=== PATIENT | female | born 1985 | race Caucasian/White ===

== ENCOUNTER 2016-08-06 10:28 | Emergency (ER) | payer BC, OTHER ==
[~2016-08-06] VITALS: Ht 154.9 cm; Wt 69.3 kg
[~2016-08-06 10:28] MED LIST: ALBU8I INH; DOCO200C PO
[2016-08-06 10:32] VITALS: BP 118/77; PULSE 88; RESP 20; TEMP 98; O2SAT 100
[2016-08-06] MEDS ORDERED: ONDANSETRON HCL 4 MG/2 ML VIAL IVP ONE (11:00)
[2016-08-06] MEDS ORDERED: PANTOPRAZOLE SODIUM 40 MG VIAL IVP ONE (11:00)
--- NOTE | 2016-08-06 11:00 | PD ---
HPI Chief Complaint: Abdominal Pain Time Seen by Provider: 10:45 Travel History International Travel<30 days: No Contact w/Intl Traveler<30days: No Traveled to known affect area: No History of Present Illness HPI 30yo F with no significant PMH presents to the ED with c/o epigastric abdominal pain that has been intermittent since 07/12/16. States it is sharp and sometimes radiates to left upper abdomen and left lower back. States it was constant since last night. Pain is worst after eating. +Nausea. Denies any fever, chest pain, sob, vomiting, dysuria, hematuria, vaginal bleeding or discharge, focal weakness or numbness, alcohol use, or trauma. Only PSH is . Never had endoscopy. PFSH Past Medical History Diabetes: Yes (GESTATIONAL) Patient Takes Glucophage: No Diminished Hearing: No Headaches: Yes Tetanus Vaccination: < 5 Years Influenza Vaccination: No ?: Unknown LMP: 07/16/16 : 1 Past Surgical History Section: Yes Oral Surgery: Yes (WISDOM TEETH) Social History Alcohol Use: No Tobacco Use: No Substance Use: No Allergies-Medications (Allergen,Severity, Reaction): Coded Allergies: No Known Allergies (Verified , 08/06/16) Reported Meds & Prescriptions Reported Meds & Active Scripts Active No Active Prescriptions or Reported Medications Review of Systems Except as stated in HPI: all other systems reviewed are Neg Physical Exam Narrative GENERAL: 30yo F not in distress. SKIN: Focused skin assessment warm/dry. HEAD: Atraumatic. Normocephalic. CARDIOVASCULAR: Regular rate and rhythm. No murmur appreciated. RESPIRATORY: No accessory muscle use. Clear to auscultation. Breath sounds equal bilaterally. GASTROINTESTINAL: Abdomen soft, +TTP epigastric region. +LUQ ttp. No RLQ ttp. No rebound tenderness or guarding. BACK: No CVA tenderness bilaterally. No midline thoracic or lumbar spine ttp. +TTP left paraspinal lumbar region. Negative straight leg test. MUSCULOSKELETAL: No obvious deformities. No clubbing. No cyanosis. No edema. NEUROLOGICAL: Awake and alert. No obvious cranial nerve deficits. Motor grossly within normal limits. Sensation equal bilaterally. Normal speech. PSYCHIATRIC: Appropriate mood and affect; insight and judgment normal. Data Data Last Documented VS Vital Signs Date Time Temp Pulse Resp B/P Pulse Ox O2 Delivery O2 Flow Rate FiO2 08/06/16 10:32 98.0 88 20 118/77 100 Orders Ed Urine Pregnancytest Poc (08/06/16 10:50) Complete Blood Count With Diff (08/06/16 10:55) Comprehensive Metabolic Panel (08/06/16 10:55) Lipase (08/06/16 10:55) Urinalysis - C+S If Indicated (08/06/16 10:55) Ondansetron Inj (Zofran Inj) (08/06/16 11:00) Pantoprazole Inj (Protonix Inj) (08/06/16 11:00) Morphine Inj (Morphine Inj) (08/06/16 11:45) Ct Abd/Pel W Iv Contrast(Rout) (08/06/16 ) Potassium Chloride (Kcl) (08/06/16 11:45) Urine Culture (08/06/16 11:00) Iohexol 350 Inj (Omnipaque 350 Inj) (08/06/16 11:51) Sulfamet-Trimeth Ds 800-160 Mg (Bactrim (08/06/16 12:30) Labs Laboratory Tests Test 08/06/16 11:00 White Blood Count 2.8 TH/MM3 Red Blood Count 4.47 MIL/MM3 Hemoglobin 12.4 GM/DL Hematocrit 37.8 % Mean Corpuscular Volume 84.7 FL Mean Corpuscular Hemoglobin 27.9 PG Mean Corpuscular Hemoglobin 32.9 % Concent Red Cell Distribution Width 12.2 % Platelet Count 180 TH/MM3 Mean Platelet Volume 8.6 FL Neutrophils (%) (Auto) 46.2 % Lymphocytes (%) (Auto) 36.2 % Monocytes (%) (Auto) 13.3 % Eosinophils (%) (Auto) 3.9 % Basophils (%) (Auto) 0.4 % Neutrophils # (Auto) 1.3 TH/MM3 Lymphocytes # (Auto) 1.0 TH/MM3 Monocytes # (Auto) 0.4 TH/MM3 Eosinophils # (Auto) 0.1 TH/MM3 Basophils # (Auto) 0.0 TH/MM3 CBC Comment DIFF FINAL Differential Comment Urine Collection Type CLEAN CATCH Urine Color YELLOW Urine Turbidity SLIGHT Urine pH 6.0 Urine Specific Moro 1.014 Urine Protein NEG mg/dL Urine Glucose (UA) NEG mg/dL Urine Ketones NEG mg/dL Urine Occult Blood NEG Urine Nitrite NEG Urine Bilirubin NEG Urine Leukocyte Esterase TRACE Urine WBC 9-14 /hpf Urine Squamous Epithelial 0-5 /hpf Cells Urine Transitional Epithelial 0-5 /hpf Cells Urine Amorphous Sediment FEW Urine Bacteria FEW /hpf Microscopic Urinalysis Comment CULTURE INDICATED Urine Collection Time 1100 Sodium Level 142 MEQ/L Potassium Level 3.3 MEQ/L Chloride Level 107 MEQ/L Carbon Dioxide Level 26.6 MEQ/L Anion Gap 8 MEQ/L Blood Urea Nitrogen 7 MG/DL Creatinine 0.74 MG/DL Estimat Glomerular Filtration 93 ML/MIN Rate Random Glucose 82 MG/DL Calcium Level 7.7 MG/DL Total Bilirubin 0.4 MG/DL Aspartate Amino Transf 12 U/L (AST/SGOT) Alanine Aminotransferase 16 U/L (ALT/SGPT) Alkaline Phosphatase 55 U/L Total Protein 7.0 GM/DL Albumin 3.2 GM/DL Lipase 73 U/L [facility] Medical Decision Making Medical Screen Exam Complete: Yes Emergency Medical Condition: Yes Interpretation(s) Laboratory Tests Test 08/06/16 11:00 White Blood Count 2.8 TH/MM3 (4.0-11.0) Red Blood Count 4.47 MIL/MM3 (4.00-5.30) Hemoglobin 12.4 GM/DL (11.6-15.3) Hematocrit 37.8 % (35.0-46.0) Mean Corpuscular Volume 84.7 FL (80.0-100.0) Mean Corpuscular Hemoglobin 27.9 PG (27.0-34.0) Mean Corpuscular Hemoglobin 32.9 % Concent (32.0-36.0) Red Cell Distribution Width 12.2 % (11.6-17.2) Platelet Count 180 TH/MM3 (150-450) Mean Platelet Volume 8.6 FL (7.0-11.0) Neutrophils (%) (Auto) 46.2 % (16.0-70.0) Lymphocytes (%) (Auto) 36.2 % (9.0-44.0) Monocytes (%) (Auto) 13.3 % (0.0-8.0) Eosinophils (%) (Auto) 3.9 % (0.0-4.0) Basophils (%) (Auto) 0.4 % (0.0-2.0) Neutrophils # (Auto) 1.3 TH/MM3 (1.8-7.7) Lymphocytes # (Auto) 1.0 TH/MM3 (1.0-4.8) Monocytes # (Auto) 0.4 TH/MM3 (0-0.9) Eosinophils # (Auto) 0.1 TH/MM3 (0-0.4) Basophils # (Auto) 0.0 TH/MM3 (0-0.2) CBC Comment DIFF FINAL Differential Comment Urine Collection Type CLEAN CATCH Urine Color YELLOW (YELLW/STRAW) Urine Turbidity SLIGHT (CLEAR) Urine pH 6.0 (5.0-8.5) Urine Specific Moro 1.014 (1.002-1.035) Urine Protein NEG mg/dL (NEG-TRACE) Urine Glucose (UA) NEG mg/dL (NEG) Urine Ketones NEG mg/dL (NEG) Urine Occult Blood NEG (NEG) Urine Nitrite NEG (NEG) Urine Bilirubin NEG (NEG) Urine Leukocyte Esterase TRACE (NEG) Urine WBC 9-14 /hpf (0-5) Urine Squamous Epithelial 0-5 /hpf (0-5) Cells Urine Transitional Epithelial 0-5 /hpf (NONE) Cells Urine Amorphous Sediment FEW Urine Bacteria FEW /hpf (NONE) Microscopic Urinalysis Comment CULTURE INDICATED Urine Collection Time 1100 Sodium Level 142 MEQ/L (136-145) Potassium Level 3.3 MEQ/L (3.5-5.1) Chloride Level 107 MEQ/L (98-107) Carbon Dioxide Level 26.6 MEQ/L (21.0-32.0) Anion Gap 8 MEQ/L (5-15) Blood Urea Nitrogen 7 MG/DL (7-18) Creatinine 0.74 MG/DL (0.50-1.00) Estimat Glomerular Filtration 93 ML/MIN (>89) Rate Random Glucose 82 MG/DL (74-106) Calcium Level 7.7 MG/DL (8.5-10.1) Total Bilirubin 0.4 MG/DL (0.2-1.0) Aspartate Amino Transf 12 U/L (15-37) (AST/SGOT) Alanine Aminotransferase 16 U/L (10-53) (ALT/SGPT) Alkaline Phosphatase 55 U/L (45-117) Total Protein 7.0 GM/DL (6.4-8.2) Albumin 3.2 GM/DL (3.4-5.0) Lipase 73 U/L (73-393) Last Impressions Abdomen/Pelvis CT 08/06/16 0000 Signed Impressions: Service Date/Time: Saturday, August 06, 2016 11:36 - CONCLUSION: 1. No acute inflammatory process. 2. Punctate 2 mm nonobstructing right renal calculus. 3. Hepatic and renal subcentimeter low densities likely benign. Nilton Madrigal MD Differential Diagnosis Peptic ulcer disease vs. pancreatitis vs. gastritis vs. pyelonephritis vs. nephrolithiasis vs. musculoskeletal pain Narrative Course 30yo F with epigastric and LUQ pain. Pt given pantoprazole and zofran and reevaluated at bedside. States pain has not improved. Labs reviewed, leukopenia which is new. K: 3.3, replaced orally. Lipase normal. Urine negative. Since pt still with pain, will give morphine 6mg IV and do CTa/p. CTa/p showed no acute inflammatory process. Punctate 2mm nonobstructing right renal calculus. UA showed trace leukocyte. WBC 9-14. Pt did have left sided back pain so will treat as pyelonephritis. Pt given bactrim PO and able to tolerate. Pt reevaluated after morphine and pain has improved. Pt is to follow up with GI for further evaluation of epigastric pain which I feel may be gastritis or peptic ulcer disease. Return precautions given. Diagnosis Primary Impression: Abdominal pain Qualified Code: R10.13 - Epigastric pain Referrals: Lona Yancey MD as needed Epigastric abdominal pain concerning for PUD Patient Instructions: General Instructions Departure Forms: Tests/Procedures Additional Instructions: Please follow up with your PMD in 3-7 days. Please follow up with music artist if epigastric pain persists. Return to the ED if symptoms worsen. Med/Other Pt SpecificInfo: Prescription(s) given Scripts Ondansetron Odt (Zofran Odt)4 Mg Tab4 Mg SL Q12HR PRN (Nausea/Vomiting) #6 TAB Ref 0 Prov:Rose Marie Nguyen DO 08/06/16 Sulfamethoxazole-Trimethoprim (Bactrim DS)800-160 Mg Tab1 Tab PO BID #6 TAB Ref 0 Prov:Rose Marie Nguyen DO 08/06/16 Omeprazole 40 Mg Cap40 Mg PO DAILY #7 CAP Ref 0 Prov:Rose Marie Nguyen DO 08/06/16 Disposition: 01 DISCHARGE HOME Condition: Stable Rose Marie Nguyen DO August 06, 2016 11:00
[2016-08-06 11:09] LABS: AUTOMATED NEUTROPHIL # 1.3 TH/MM3 (1.8-7.7); BASOPHIL % 0.4 % (0.0-2.0); EOSINOPHIL # 0.1 TH/MM3 (0-0.4); EOSINOPHIL % 3.9 % (0.0-4.0); HEMATOCRIT 37.8 % (35.0-46.0); HEMO FLAGS DIFF FINAL; LYMPH % 36.2 % (9.0-44.0); MEAN CELL VOLUME 84.7 FL (80.0-100.0); MEAN CORPUSCULAR HEMOGLOBIN 27.9 PG (27.0-34.0); MEAN CORPUSCULAR HGB CONC 32.9 % (32.0-36.0); MONO % 13.3 % (0.0-8.0); NEUT % 46.2 % (16.0-70.0); PLATELET COUNT 180 TH/MM3 (150-450); RED BLOOD COUNT 4.47 MIL/MM3 (4.00-5.30); RED CELL DISTRIBUTION WIDTH 12.2 % (11.6-17.2); WHITE BLOOD COUNT 2.8 TH/MM3 (4.0-11.0)
[2016-08-06 11:17] LABS: CHLORIDE 107 MEQ/L (98-107); POTASSIUM 3.3 MEQ/L (3.5-5.1); SODIUM (NA) 142 MEQ/L (136-145)
[2016-08-06 11:21] LABS: ANION GAP 8 MEQ/L (5-15); BICARBONATE 26.6 MEQ/L (21.0-32.0); BLOOD UREA NITROGEN 7 MG/DL (7-18)
[2016-08-06 11:24] LABS: ALT (GPT) 16 U/L (10-53); AST (GOT) 12 U/L (15-37); GLOMERULAR FILTRATION RATE 93 ML/MIN (>89)
[2016-08-06 11:26] LABS: TOTAL BILIRUBIN ADULT 0.4 MG/DL (0.2-1.0)
[2016-08-06 11:27] LABS: ALKALINE PHOSPHATASE 55 U/L (45-117)
[2016-08-06 11:29] LABS: BLOOD, URINE NEG (NEG); GLUCOSE,URINE NEG (NEG); KETONE, URINE NEG (NEG); NITRITE,URINE NEG (NEG)
[2016-08-06 11:34] LABS: METHOD OF COLLECTION CLEAN CATCH; URINE COLOR YELLOW (YELLW/STRAW)
[2016-08-06 11:36] LABS: BACTERIA, URINE FEW /hpf; COMMENT (UR) CULTURE INDICATED; COMMENT2 (UR) MUCOUS PRESENT; CULTURE IF INDICATED CULTURE INDICATED; SQUAMOUS EPITHELIAL CELL URINE 0-5 /hpf (0-5); TRANSITIONAL EPI CELLS, URINE 0-5 /hpf
[2016-08-06] MEDS ORDERED: POTASSIUM CHLORIDE 20 MEQ CONTROLLED RELEASE TAB PO ONE (11:45)
[2016-08-06] MEDS ORDERED: MORPHINE SULFATE 8 MG/ML INJ IV PUSH ONE (11:45)
[2016-08-06] MEDS ORDERED: IOHEXOL 350 MG/ML 10 ML VIAL (for RAD DIAG) IV ONE (11:51)
--- NOTE | 2016-08-06 12:17 | RADHPO ---
EXAM DATE/TIME: 08/06/2016 11:36 [facility] COMPARISON: No previous studies available for comparison. INDICATIONS : Patient complains of left upper abdominal pain for 1 month. IV CONTRAST: 95 cc Omnipaque 350 (iohexol) IV Injection Site: Lt AC Lot: [id number] Exp Date: May 2019 Lot: Exp Date : ORAL CONTRAST: No oral contrast ingested. RADIATION DOSE: 13.31 CTDIvol (mGy) MEDICAL HISTORY : Diabetes mellitus type 1. SURGICAL HISTORY : section. ENCOUNTER: Initial ACUITY: 1 month PAIN SCALE: 4/10 LOCATION: Left upper quadrant TECHNIQUE: Volumetric scanning of the abdomen and pelvis was performed. Using automated exposure control and ad justment of the mA and/or kV according to patient size, radiation dose was kept as low as reasonably achievable to obtain optimal diagnostic quality images. FINDINGS: LOWER LUNGS: The visualized lower lungs are clear. LIVER: Homogeneous density without lesion. There is no dilation of the biliary tree. No calcified gallston es. Subcentimeter hepatic hypodensities. SPLEEN: Normal size without lesion. PANCREAS: Within normal limits. KIDNEYS: Normal in size and shape. There is no mass or hydronephrosis. Subcentimeter bilateral renal densitie s. Punctate 2 mm calculus in the right kidney. ADRENAL GLANDS: Within normal limits. VASCULAR: There is no aortic aneurysm. BOWEL/MESENTERY: The stomach, small bowel, and colon demonstrate no acute abnormality. There is no free intraperitone al air or fluid. ABDOMINAL WALL: Within normal limits. RETROPERITONEUM: There is no lymphadenopathy. BLADDER: No wall thickening or mass. REPRODUCTIVE: Enlarged heterogeneous uterus containing minimal pelvic free fluid. INGUINAL: There is no lymphadenopathy or hernia. MUSCULOSKELETAL: Within normal limits for patient age. CONCLUSION: 1. No acute inflammatory process. 2. Punctate 2 mm nonobstructing right renal calculus. 3. Hepatic and renal subcentimeter low densities likely benign. Nilton Madrigal MD on August 06, 2016 at 12:11 Board Certified Radiologist. This report was verified electronically.
[2016-08-06] MEDS ORDERED: SULFAMETHOXAZOLE-TRIMETHOPRIM DS 800-160 MG TAB PO ONE (12:30)
[2016-08-06] MEDS ORDERED: BACT800T5 PO (12:38)
[2016-08-06] MEDS ORDERED: OMEP40CA2 PO (12:38)
[2016-08-06] MEDS ORDERED: ZOFR4TAB3 SL (12:39)
[2016-08-06 12:53] VITALS: BP 113/66; PULSE 74; RESP 14; O2SAT 98
== END 2016-08-06 13:06 | disposition home or self-care (01) ==
LOC: PHED 10:28
DX: R10.13 Epigastric pain (principal); R11.0 Nausea; R82.90 Unspecified abnormal findings in urine
CPT/HCPCS: 74177; 80053; 81001; 83690; 84703; 85025; 87086; 96374; 96375; 99284; C9113; J2270; J2405; Q9967

== ENCOUNTER 2017-04-06 11:26 | Emergency (ER) | payer BC ==
[~2017-04-06] VITALS: Ht 180.3 cm; Wt 74.0 kg
[~2017-04-06 11:26] MED LIST changes: -ALBU8I INH; +BACT800T5 PO; -DOCO200C PO; +OMEP40CA2 PO; +ZOFR4TAB3 SL
[2017-04-06 11:47] VITALS: BP 132/69; PULSE 89; RESP 14; TEMP 98.9; O2SAT 99
[2017-04-06] MEDS ORDERED: BIRTH CONTROL (12:02)
[2017-04-06 12:44] LABS: AUTOMATED NEUTROPHIL # 3.4 TH/MM3 (1.8-7.7); BASOPHIL % 0.8 % (0.0-2.0); EOSINOPHIL # 0.1 TH/MM3 (0-0.4); EOSINOPHIL % 2.2 % (0.0-4.0); HEMATOCRIT 37.8 % (35.0-46.0); HEMOGLOBIN 12.4 GM/DL (11.6-15.3); LYMPH % 28.9 % (9.0-44.0); LYMPHOCYTE # 1.6 TH/MM3 (1.0-4.8); MEAN CELL VOLUME 85.8 FL (80.0-100.0); MEAN CORPUSCULAR HEMOGLOBIN 28.1 PG (27.0-34.0); MEAN CORPUSCULAR HGB CONC 32.8 % (32.0-36.0); MEAN PLATELET VOLUME 8.9 FL (7.0-11.0); MONO % 5.9 % (0.0-8.0); MONOCYTE # 0.3 TH/MM3 (0-0.9); NEUT % 62.2 % (16.0-70.0); PLATELET COUNT 228 TH/MM3 (150-450); RED CELL DISTRIBUTION WIDTH 12.2 % (11.6-17.2); WHITE BLOOD COUNT 5.4 TH/MM3 (4.0-11.0)
[2017-04-06] MEDS ORDERED: NAPROXEN 500 MG TAB PO ONE (12:45)
[2017-04-06 12:53] LABS: CALCIUM 8.1 MG/DL (8.5-10.1)
[2017-04-06 12:54] LABS: BICARBONATE 27.3 MEQ/L (21.0-32.0)
[2017-04-06 12:57] LABS: CREATININE 0.69 MG/DL (0.50-1.00)
--- NOTE | 2017-04-06 13:19 | RADRPT ---
EXAM DATE/TIME: 04/06/2017 12:56 [facility] COMPARISON: No previous studies available for comparison. INDICATIONS : Right leg went numb last night causing a fall, all over right ankle pain MEDICAL HISTORY : None. SURGICAL HISTORY : None. ENCOUNTER: Initial ACUITY: 1 day PAIN SCORE: 9/10 LOCATION: Right ankle FINDINGS: Three view exam was performed of the right ankle. The bony structures are in normal alignment. No e vidence of fracture, dislocation, or soft tissue swelling. The ankle mortise is intact. No radiopaq ue foreign bodies are seen. Bony mineralization is normal. CONCLUSION: No acute disease. Garrett Barth MD on April 06, 2017 at 13:16 Board Certified Radiologist. This report was verified electronically.
--- NOTE | 2017-04-06 13:20 | RADRPT ---
EXAM DATE/TIME: 04/06/2017 12:59 [facility] COMPARISON: No previous studies available for comparison. INDICATIONS : Right leg went numb last night causing fall, has all over right foot pain MEDICAL HISTORY : None. SURGICAL HISTORY : None. ENCOUNTER: Initial ACUITY: 1 day PAIN SCORE: 9/10 LOCATION: Right foot FINDINGS: Three view examination of the right foot demonstrates no soft tissue swelling, dislocation, or fractu re. The tarsal bones appear intact. The interphalangeal and metatarsophalangeal joints are intact. The calcaneus is intact. Bony mineralization is normal. CONCLUSION: No acute disease. Garrett Barth MD on April 06, 2017 at 13:17 Board Certified Radiologist. This report was verified electronically.
--- NOTE | 2017-04-06 13:56 | PD ---
HPI Chief Complaint: Numbness/Tingling Time Seen by Provider: 12:01 Travel History International Travel<30 days: No Contact w/Intl Traveler<30days: No Traveled to known affect area: No History of Present Illness HPI This is a 31-year-old female who presents to the emergency department with numbness in her arm and leg. Patient woke up in the middle the night at 2 AM with no sensation in her right leg. She stood up but immediately fell down. Her boyfriend had to help her get up off the floor. She says that slowly her sensation improved and she felt just numbness of the leg that she continues to feel weak even here in the emergency department, constant, mild, with no associated headache. Patient also reports that intermittently throughout the night she's been feeling some right arm numbness. She denies any recent injuries. She says when she was and she had a lot of trouble with sciatica. She does have a lot of pain in the right foot and right ankle particularly with walking. She denies any loss of bowels or bladder and has no symptoms in the left leg. [facility] Past Medical History Diabetes: Yes (GESTATIONAL) Patient Takes Glucophage: No Diminished Hearing: No Headaches: Yes Tetanus Vaccination: Unknown ?: Unknown LMP: 1.5 WEEKS AGO : 1 Past Surgical History Section: Yes Oral Surgery: Yes (WISDOM TEETH) Social History Alcohol Use: No Tobacco Use: No Substance Use: No Allergies-Medications (Allergen,Severity, Reaction): Coded Allergies: No Known Allergies (Verified Adverse Reaction, Unknown, 04/06/17) Reported Meds & Prescriptions Reported Meds & Active Scripts Active Reported [ Control] Review of Systems Except as stated in HPI: all other systems reviewed are Neg Physical Exam Narrative GENERAL:Well appearing, no acute distress SKIN: Focused skin assessment warm and dry. HEAD: Atraumatic. Normocephalic. EYES: Pupils equal and round. No injection or drainage. ENT: Moist mucous membranes NECK: Trachea midline. CARDIOVASCULAR: Regular rate and rhythm. No murmur appreciated. 2+ bilateral DP pulses in the lower extremities. Normal capillary refill in the bilateral lower extremities. RESPIRATORY: Clear to auscultation. Breath sounds equal bilaterally. GASTROINTESTINAL: Abdomen soft, non-tender, nondistended. MUSCULOSKELETAL: No obvious deformities. NEUROLOGICAL: Awake and alert. No obvious cranial nerve deficits. No dysarthria or aphasia. 4+ of 5 strength in the right lower extremity, no clonus , 1+ patellar and Achilles reflexes on the right lower extremity. PSYCHIATRIC: Appropriate mood and affect; insight and judgment normal. Data Data Last Documented VS Vital Signs Date Time Temp Pulse Resp B/P (MAP) Pulse Ox O2 Delivery O2 Flow Rate FiO2 04/06/17 14:42 89 16 121/70 (87) 99 04/06/17 11:59 Room Air 04/06/17 11:47 98.9 Orders Orders Complete Blood Count With Diff (04/06/17 12:27) Basic Metabolic Panel (Bmp) (04/06/17 12:27) Ed Urine Pregnancytest Poc (04/06/17 12:27) ^ Insert Iv (04/06/17 12:27) Foot, Complete ([id number]) (04/06/17 ) Ankle, Complete ([id number]) (04/06/17 ) Naproxen (Naprosyn) (04/06/17 12:45) Mri Brain W/O Contrast (04/06/17 ) Mri C Spine W/O Contrast (04/06/17 ) Acetaminophen (Tylenol) (04/06/17 15:15) Labs Laboratory Tests Test 04/06/17 12:39 White Blood Count 5.4 TH/MM3 Red Blood Count 4.40 MIL/MM3 Hemoglobin 12.4 GM/DL Hematocrit 37.8 % Mean Corpuscular Volume 85.8 FL Mean Corpuscular Hemoglobin 28.1 PG Mean Corpuscular Hemoglobin Concent 32.8 % Red Cell Distribution Width 12.2 % Platelet Count 228 TH/MM3 Mean Platelet Volume 8.9 FL Neutrophils (%) (Auto) 62.2 % Lymphocytes (%) (Auto) 28.9 % Monocytes (%) (Auto) 5.9 % Eosinophils (%) (Auto) 2.2 % Basophils (%) (Auto) 0.8 % Neutrophils # (Auto) 3.4 TH/MM3 Lymphocytes # (Auto) 1.6 TH/MM3 Monocytes # (Auto) 0.3 TH/MM3 Eosinophils # (Auto) 0.1 TH/MM3 Basophils # (Auto) 0.0 TH/MM3 CBC Comment DIFF FINAL Differential Comment Blood Urea Nitrogen 13 MG/DL Creatinine 0.69 MG/DL Random Glucose 86 MG/DL Calcium Level 8.1 MG/DL Sodium Level 137 MEQ/L Potassium Level 3.7 MEQ/L Chloride Level 104 MEQ/L Carbon Dioxide Level 27.3 MEQ/L Anion Gap 6 MEQ/L Estimat Glomerular Filtration Rate 100 ML/MIN MDM Medical Decision Making Medical Screen Exam Complete: Yes Emergency Medical Condition: Yes Interpretation(s) Last 24 hours Impressions Foot X-Ray 04/06/17 Signed Impressions: Service Date/Time: Thursday, April 06, 2017 12:59 - CONCLUSION: No acute disease. Garrett Barth MD Cervical Spine MRI 04/06/17 Signed Impressions: Service Date/Time: Thursday, April 06, 2017 13:54 - CONCLUSION: 1. Negative MRI of the cervical spine Lux Spain MD Brain MRI 04/06/17 Signed Impressions: Service Date/Time: Thursday, April 06, 2017 13:54 - CONCLUSION: 1. No evidence of acute intracranial pathology. No masses are identified. Lux Spain MD Ankle X-Ray 04/06/17 Signed Impressions: Service Date/Time: Thursday, April 06, 2017 12:56 - CONCLUSION: No acute disease. Garrett Barth MD afebrile, no tachycardia, normotensive no leukocytosis electrolytes within normal limits Differential Diagnosis sciatica, herniated disc, cauda equina syndrome, stroke, multiple sclerosis, cervical stenosis Narrative Course This is a 31-year-old female who presents to the emergency department with multiple neurologic symptoms including numbness and weakness in her right leg as well as intermittently in her right arm. She does have some weakness in the right lower extremity on exam. She has no signs or symptoms of cauda equina syndrome. MRI of the head and cervical spine were obtained which were reassuring. X-rays of the foot and ankle were obtained given some bruising and tenderness along the right lateral foot which were reassuring. I suspect the patient has sciatica. I advised her to continue anti-inflammatories and follow up with her primary care physician in one week if she is not improved. Patient will be discharged home. Diagnosis Primary Impression: Lumbosacral radiculopathy Additional Impression: Foot contusion Qualified Codes: S90.31XA - Contusion of right foot, initial encounter Patient Instructions: General Instructions Additional Instructions: If you develop weakness of your legs, difficulty walking, numbness of your legs or your genital or rectal area, loss of your bowel or bladder, or difficulty urinating return to the emergency department immediately. Followup with your primary care physician in one week if your symptoms have not improved. Med/Other Pt SpecificInfo: Prescription(s) given Scripts Naproxen (Naproxen) 500 Mg Tab 500 MG PO BID Y for PAIN SCALE 4 TO 10, #20 TAB 0 Refills Prov: Missy French MD 04/06/17 Disposition: 01 DISCHARGE HOME Condition: Stable Missy French MD Apr 06, 2017 13:56
[2017-04-06 14:42] VITALS: BP 121/70; PULSE 89; RESP 16; O2SAT 99
--- NOTE | 2017-04-06 14:49 | RADRPT ---
EXAM DATE/TIME: 04/06/2017 13:54 [facility] COMPARISON: No previous studies available for comparison. INDICATIONS : Right sided weakness. MEDICAL HISTORY : None. SURGICAL HISTORY : section. ENCOUNTER: Initial ACUITY: 1 day PAIN SCORE: 0/10 LOCATION: cranial TECHNIQUE: Multiplanar, multisequence MRI of the brain was performed without contrast. FINDINGS: CEREBRUM: The ventricles are normal for age. No evidence of midline shift, mass lesion, hemorrhage or acute in farction. No extraaxial fluid collections are seen. The pituitary gland and suprasellar cistern are normal in configuration. WHITE MATTER: No significant signal abnormalities are seen in the white matter. POSTERIOR FOSSA: The cerebellum and brainstem are intact. The 4th ventricle is midline. The cerebellopontine angle is unremarkable. The cerebellar tonsils are normal in position. DIFFUSION IMAGING: No focal areas of restricted diffusion are seen. No evidence of acute infarction. EXTRACRANIAL: The visualized portions of the orbits and paranasal sinuses are unremarkable. CONCLUSION: 1. No evidence of acute intracranial pathology. No masses are identified. Lux Spain MD on April 06, 2017 at 14:46 Board Certified Radiologist. This report was verified electronically.
--- NOTE | 2017-04-06 15:10 | RADRPT ---
EXAM DATE/TIME: 04/06/2017 13:54 [facility] COMPARISON: No previous studies available for comparison. INDICATIONS : Extremity weakness. MEDICAL HISTORY : None. SURGICAL HISTORY : section. ENCOUNTER: Initial ACUITY: 1 day PAIN SCORE: 0/10 LOCATION: cranial TECHNIQUE: Multiplanar, multisequence MRI examination of the cervical spine was performed. FINDINGS: VERTEBRAE: Normal vertebral body height. Homogeneous marrow signal. ALIGNMENT: No evidence of subluxation. CORD: Normal configuration and signal. POST FOSSA: The cerebellar tonsils are normal in position. C2-C3: The thecal sac has a normal configuration. There is no evidence of disc herniation or spinal canal s tenosis. The neural foramina are patent bilaterally. C3-C4: The thecal sac has a normal configuration. There is no evidence of disc herniation or spinal canal s tenosis. The neural foramina are patent bilaterally. C4-C5: The thecal sac has a normal configuration. There is no evidence of disc herniation or spinal canal s tenosis. The neural foramina are patent bilaterally. C5-C6: The thecal sac has a normal configuration. There is no evidence of disc herniation or spinal canal s tenosis. The neural foramina are patent bilaterally. C6-C7: The thecal sac has a normal configuration. There is no evidence of disc herniation or spinal canal s tenosis. The neural foramina are patent bilaterally. C7-T1: The thecal sac has a normal configuration. There is no evidence of disc herniation or spinal canal s tenosis. The neural foramina are patent bilaterally. CONCLUSION: 1. Negative MRI of the cervical spine Lux Spain MD on April 06, 2017 at 15:07 Board Certified Radiologist. This report was verified electronically.
[2017-04-06] MEDS ORDERED: ACETAMINOPHEN 500 MG CPLT PO ONE (15:15)
[2017-04-06] MEDS ORDERED: NAPR500T2 PO (15:28)
== END 2017-04-06 15:39 | disposition home or self-care (01) ==
LOC: PHED 11:26
DX: M54.17 Radiculopathy, lumbosacral region (principal); S90.31XA Contusion of right foot, initial encounter; W18.39XA Other fall on same level, initial encounter; Y92.003 Bedroom of unspecified non-institutional (private) residence as the place of occurrence of the external cause
CPT/HCPCS: 70551; 72141; 73610; 73630; 80048; 84703; 85025; 99285